=== PATIENT | male | born 1995 | race Asian ===

== ENCOUNTER 2018-12-10 09:54 | Emergency (ER) | payer OTHER ==
[~2018-12-10] VITALS: Ht 177.8 cm; Wt 72.6 kg
[2018-12-10 09:56] VITALS: Ht 177.8 cm; Wt 72.6 kg
[2018-12-10 11:31] VITALS: BP 121/72
== END 2018-12-10 11:31 | disposition home or self-care (01) ==
LOC: ED 09:54
DX: F10.129 Alcohol abuse with intoxication, unspecified (principal); R07.89 Other chest pain; R11.10 Vomiting, unspecified
CPT/HCPCS: G0480; J2405; J7030; Q0092